=== PATIENT | male | born 1945 | race Caucasian/White ===

== ENCOUNTER 2017-03-28 07:00 | Day surgery (SDC) | payer MEDICARE, OTHER ==
[~2017-03-28] VITALS: Ht 172.7 cm; Wt 94.3 kg
[~2017-03-28 07:00] MED LIST: ASPI-973 PO; CARV6.252 PO; LISI-571 PO; LOSA25TA21 PO; Lactated Ringer's 1,000 ML IV ONE; NAPR250T PO; NIAC1000 PO; OMEG500C PO; ROSU40TA PO
[2017-03-28] MEDS ORDERED: Lactated Ringer's 1,000 ML IV SCH (07:16)
[2017-03-28 07:32] VITALS: BP 152/73; PULSE 68; RESP 16; O2SAT 98
--- NOTE | 2017-03-28 07:47 | PCM.HPANE ---
Patient Data Surgeon Admitting Provider: Attending Provider:Victor M James MD Primary Care Physician:Yolanda Lewis MD Other Provider:Naheed Gonzalezingham Anesthesia Reason for Visit History Of Rectal Cancer Ht/WT & BMI Height (Feet): 5 Height (Inches): 8 Weight (Kilograms): 94.35 Body Mass Index 31.00 Allergies Coded Allergies: No Known Allergies (Verified , 03/26/17) Uncoded Allergies: No Known Allergies (Allergy, Severe, 08/09/04) Past Anesthesia History Anesthesia History: Denies:: Abnormal Airway, Anesthesia Reactions, Difficult Intubation, Fam Anesthesia Reaction, Fam Malignant Hypertherm, Malignant Hyperthermia Diabetes History Hx Diabetes?: No MRSA MRSA: No Medications Blood Thinner: Aspirin Last Dose Blood Thinner: Mar 27, 2017 Home Meds Incl Beta Júnior: Yes Date Beta Júnior Taken: Mar 27, 2017 Time Beta Júnior Taken: 2100 Reported Medications Niacin ER (Niaspan)1,000 Mg Tablet1,000 Mg PO DAILY Ref 0 03/26/17 Losartan Potassium 25 Mg [id number] Mg PO 03/26/17 Lisinopril 5 Mg Tablet5 Mg PO DAILY #30 TABLET Ref 0 03/26/17 [place]-3 Fatty Acids (Fish Oil)500 Mg Capsule.dr500 Mg PO 03/26/17 Rosuvastatin Calcium (Crestor)40 Mg [id number] Mg PO DAILY 30 Days Ref 0 03/26/17 Carvedilol 6.25 Mg Tablet6.25 Mg PO BID Ref 0 03/26/17 Aspirin 81 Mg Bipiit17 Mg PO DAILY Ref 0 03/26/17 Discontinued Reported Medications Naproxen 250 Mg [id number] Mg PO BID PRN For Pain Ref 0 03/26/17 Last Time Dose Received No meds today History History of ENT Problems?: No HEENT History: Denies:: Abnormal Airway Difficult Intubation Dysphagia Hearing Problem Denture Type: None Teeth Condition: Within Normal Limits Hx of Heart Problems?: Yes Cardiovascular History: Positive for:: Hypertension Denies:: AICD Atrial Fibrillation Chest Pain Pacemaker Valvular Heart Disease Other History/Comments No CP; Greater than 4 mets Hx of Respiratory Problem?: No Respiratory History: Denies:: Asthma COPD Cough Hemoptysis Pneumonia Tuberculosis Hx Neurologic Problems?: No Neurological History: Denies:: CVA Hx of GI Problems?: Yes Hx of Problems?: No Male Hx: Denies:: Scrotal Mass Testicular Surgery Hx Musculoskeletal Problems?: No Musculoskeletal History: Denies:: Fibromyalgia Joint Replacement Hx of Psycho/Social Problems?: Yes Psycho Social History: Denies:: Anxiety Bipolar Disorder Hx Depression Suicide Attempt Hx Surgeries?: Yes (TRIPLE BYPASS, COLORECTAL CA SX) Hx Any Other Health Problems?: No Other History: Positive for:: Cancer (colon rectal cancer) Hospitalization Denies:: Endocrine Disease Thyroid Disease History Blood Transfusions: Denies:: Blood Transfusions Hx Diabetes: No Hx Alcohol Use: Yes (SOME)Hx Substance Use: No Smoking Status: Unknown if Ever Smoker Have You Smoked inLast 12 mo: No Stop/Bang Treated for Sleep Apnea?: No Do You Have a CPAP Machine?: No S-Snoring: Do You Snore Loudly: No T-Tired: feel tired, fatigued: No O-Obsered: Observed not breath: No P-Blood Pressure: treated: Yes B- Body Mass Index > 35 kg/m2: No A- Age over 50: Yes N- Neck Large Circumference: No G- Gender Male: Yes SONIDO Total Score: 3 Risk Assessment Category Category 1A: Patient has history of documented sleep apnea, and HAS NOT received any narcotic, sedative or anesthesia administration during this stay. Category 1B: Patient has history of documented sleep apnea, and HAS received any narcotic , sedative or anesthesia administration during this stay Category 2: Patient has SUSPECTED Obstructive Sleep Apnea, and HAS received any narcotic , sedative or anesthesia administration during this stay. Category 3: Patient has SUSPECTED Obstructive Sleep Apnea and HAS NOT received narcotic, sedative or anesthesia administration during this stay. Category 4: Outpatient in Procedural Areas with known sleep apnea or who screen positive for High Risk via the STOP/BANG questionnaire. Exam Exam Vital Signs Vital Signs Date Time Temp Pulse Resp B/P Pulse Ox O2 Delivery O2 Flow Rate FiO2 03/28/17 07:32 36.6 68 16 152/73 98 Room Air General Appearance: Alert, Oriented X3 HEENT/AIRWAY: MP 2, Neck Movement (FROM) Lungs: Clear to Auscultation, Clear to Percussion Heart: Exam Unremarkable, Regular Rate/Rhythm Meds/Labs/Diagnostics Admission Meds Current Medications Lactated Ringer's (Lr) 1,000 ml @ 10 mls/hr Q24H ONCE IV Last administered on 03/28/17t 07:38; Start 03/28/17 at 06:00; Stop 03/29/17 at 05:59 Plan Impression Patient chart reviewed, patient interviewed and anesthestic plan with risks, benefits, and alternatives discussed, and informed consent obtained. ASA Physical Status: ASA3 Severe Disease (obesity; CAD; hx colon CA) Anesthetic Plan: MAC Bene/Risks/Altern/Consents: Yes HP Complete Prior to Induction: Yes Paulo Gil MD Mar 28, 2017 07:46
[2017-03-28 08:24] VITALS: BP 113/65; PULSE 77; RESP 16; O2SAT 94
--- NOTE | 2017-03-28 08:24 | PCM.ANEP1 ---
Post Anesthesia PACU Phase 1 Assessment Vital Signs Vital Signs Date Time Temp Pulse Resp B/P Pulse Ox O2 Delivery O2 Flow Rate FiO2 03/28/17 07:32 36.6 68 16 152/73 98 Room Air Anesthetic Administered: MAC Level of Alertness: Awake, talking DOW's with Equal Strength: Yes Pain: No Nausea or Vomiting: No CV Function & Hydration Stable: Yes Airway Device: Lungs: Clear to Auscultation, Clear to Percussion PACU Phase 2 Assessment Complications: No Follow up Care: No Patient Instructions Provided: N/A Comments See anesth record for PACU VS. PACU VSS Paulo Gil MD Mar 28, 2017 08:24
[2017-03-28 08:32] VITALS: BP 132/73; PULSE 76; RESP 16; O2SAT 98
[2017-03-28 08:39] VITALS: BP 138/85; PULSE 77; RESP 16; O2SAT 97
--- NOTE | 2017-03-28 08:51 | ENDO ---
[address] [address] ENDOSCOPY PROCEDURE PATIENT: CONSTANZA TURNER : 1945 MR#: [id number] ADMIT: 03/28/2017 JOB ID: [id number] DATE OF SERVICE: 03/28/2017 PREOPERATIVE DIAGNOSIS(ES): Personal history of rectal cancer. POSTOPERATIVE DIAGNOSIS(ES): 1. Sigmoid colon polyp. 2. Proximal transverse colon polyp. PROCEDURE: Colonoscopy to cecum, with snare polypectomy x2 with cautery. SURGEON: Victor M James MD. INDICATIONS: A 71-year-old man who 19 years ago had a very low rectal cancer. His final pathology stage was stage III, with one positive node. He received neoadjuvant radiochemotherapy, a very low anterior resection with a diverting proximal diverting loop colostomy that was ultimately taken down. He received postoperative chemotherapy. He has had no evidence or recurrence. His last colonoscopy was five years ago. After discussing options with the patient, he has elected proceed with colonoscopy. FINDINGS: He had a good prep. The only place that it was incomplete was in the cecum, there was adherent stool. The scope was advanced to the cecum. It was withdrawn over 8 minutes 55 seconds. Two polyps were identified. Both removed with snare with cautery. One in the sigmoid and one in the proximal transverse colon. No other polyps identified. Retroflexed views of the rectum were normal. DESCRIPTION OF PROCEDURE: The procedure and sedation plan was discussed with the patient and nursing staff, and Dr. Paulo Gil from anesthesia provided sedation. A digital rectal exam was performed. The Olympus PCF-H180AL video colonoscope was passed transanally, advanced to the cecum with results and procedures as discussed above. Retroflexed views of the rectum were normal. As previous, the anastomosis was within 2 to at most 3 cm from the anal verge. IMPRESSION: 1. Personal history of rectal cancer 19 years ago. 2. Two small adenomatous appearing polyps. RECOMMENDATIONS: Colonoscopy in five years.
--- NOTE | 2017-04-01 14:11 | PATH ---
SURGICAL PATHOLOGY Attending Physician:Celena Camejo CASE STATUS: Signed Out PATIENT NAME: CONSTANZA TURNER PID: [id number] : 1945 DATE COLLECTED:03/28/2017 16:34 SPECIMEN: 1: Colon, Polyp 2: Colon, Polyp CLINICAL HISTORY: HISTORY OF RECTAL CANCER 1). SIGMOID COLON POLYP 2). PROXIMAL TRANSVERSE COLON POLYP FINAL DIAGNOSIS: 1. Sigmoid Colon Polyp, Biopsy: Tubular adenoma. 2. Proximal Transverse Colon Polyp, Polypectomy: Tubular adenoma. ICD10: D12.6 GROSS DESCRIPTION: The specimen is received in two formalin filled containers labeled with the patient's name. 1). The specimen is filled labeled "sigmoid polyp" and consists of a less than 0.1 CM portion of tissue which is entirely submitted in cassette 1A. 2). The specimen is labeled "proximal transverse polyp" and consists of 2 portions of tissue which aggregate to 0.3 x 0.3 x 0.2 CM. The specimen is entirely submitted in cassette 2A. 03/28/2017DC ICD-9 CODES: CPT CODES: 1: 24055 2: 70389 Electronically Signed Out Robbin Hill MD, Ph.D. [facility] [address], [place] [address] Technical component performed at [facility], [facility] [address], [place], [address]
== END 2017-03-28 23:59 | disposition home or self-care (01) ==
LOC: END 07:00
PROVIDERS: ATTEND Surgery
DX: Z12.11 Encounter for screening for malignant neoplasm of colon (principal); D12.3 Benign neoplasm of transverse colon; D12.5 Benign neoplasm of sigmoid colon; Z85.048 Personal history of other malignant neoplasm of rectum, rectosigmoid junction, and anus; I25.10 Atherosclerotic heart disease of native coronary artery without angina pectoris; E78.5 Hyperlipidemia, unspecified; I25.2 Old myocardial infarction; I10 Essential (primary) hypertension; F41.9 Anxiety disorder, unspecified; Z95.1 Presence of aortocoronary bypass graft; Z92.3 Personal history of irradiation; Z92.21 Personal history of antineoplastic chemotherapy; Z79.82 Long term (current) use of aspirin
CPT/HCPCS: 45385; 88305; J7120